=== PATIENT | male | born 1980 | race Hispanic/Latino ===

== ENCOUNTER → 2025-04-06 | Outpatient (CLI) | payer BC ==
[~2025-04-06] MED LIST: GADOTERATE MEGLUMINE 5 MMOL/10 ML VIAL IV ONE
--- NOTE | 2025-04-07 06:48 | HMCIMG ---
EXAMINATION: MRI Abdomen with and without intravenous contrast with MRCP CLINICAL HISTORY: Abnormal results of liver function studies TECHNIQUE: Multiplanar, multisequence MR images of the abdomen were acquired before and after intravenous gadolinium?based contrast. Heavily T2?weighted MRCP sequences were obtained. CONTRAST: With and without intravenous contrast. COMPARISON: None provided. FINDINGS Liver: The liver is enlarged, measuring 20.6 cm craniocaudal, and demonstrates diffuse hepatic steatosis. No focal hepatic lesion is identified. Gallbladder and Bile Ducts: Multiple gallstones are present, the largest measuring 2 cm. The gallbladder wall shows mild fundal thickening of approximately 0.5 cm without pericholecystic inflammatory changes. The common bile duct is normal in caliber. Pancreas: The pancreas appears unremarkable with no mass or ductal abnormality. Kidneys: A right renal cyst is seen in the upper pole measuring 0.5 ??? 0.5 ??? 0.5 cm. The left kidney is unremarkable. Biliary Ducts (MRCP): Intrahepatic and extrahepatic bile ducts are normal in caliber with no dilatation. Pancreatic Duct: The pancreatic duct is of normal caliber without dilatation. Bowel: The visualized small bowel and colon demonstrate normal wall thickness and signal intensity. No intraluminal obstruction, mass, or abnormal enhancement is identified. There is a mild colonic stool burden consistent with constipation. Adrenals: Both adrenal glands are normal in size and morphology with homogeneous signal intensity and no evidence of mass or hemorrhage. Bones: Visualized portions of the spine and osseous structures show normal marrow signal without focal lesion or fracture. Peritoneum: No free fluid or ascites is identified. IMPRESSION * Hepatomegaly (20.6 cm) with diffuse hepatic steatosis. No focal hepatic lesions. No focal hepatic lesions. * Multiple gallstones, largest 2 cm, with mild fundal wall thickening (0.5 cm) but no cholecystitis. * Right renal cyst measuring 0.5 cm in all dimensions. /Tan
== END | disposition home or self-care (01) ==
LOC: RAH 10:48
PROVIDERS: ATTEND Internal Medicine Gastroenterology
DX: N28.1 Cyst of kidney, acquired (principal); K80.20 Calculus of gallbladder without cholecystitis without obstruction; K76.0 Fatty (change of) liver, not elsewhere classified; R94.5 Abnormal results of liver function studies; R16.0 Hepatomegaly, not elsewhere classified
CPT/HCPCS: 74183; A9575